=== PATIENT | male | born 1965 | race Caucasian/White ===

== ENCOUNTER 2017-10-31 07:06 | Emergency (ER) | payer MEDICAID, OTHER ==
[~2017-10-31] VITALS: Wt 86.0 kg
[~2017-10-31 07:06] MED LIST: IBUP-1542 PO
[2017-10-31] MEDS ORDERED: ALBUTEROL 0.083% (NEB) 2.5 MG/3 ML AMP NEB STA (07:31)
[2017-10-31] MEDS ORDERED: IPRATROPIUM (NEB) 0.5 MG/2.5 ML AMP NEB STA (07:31)
[2017-10-31] MEDS ORDERED: predniSONE 20 MG TAB PO STA (07:31)
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
[2017-10-31] MEDS ORDERED: PRED20TA PO (08:00)
[2017-10-31] MEDS ORDERED: ALBU8.5H3 INH (08:00)
== END 2017-10-31 08:40 | disposition home or self-care (01) ==
LOC: FTE 07:06
DX: J45.901 Unspecified asthma with (acute) exacerbation (principal); I10 Essential (primary) hypertension
CPT/HCPCS: 94664; J7512; Z7502; Z7610

== ENCOUNTER 2017-10-31 20:38 | Emergency (ER) | payer MEDICAID ==
[~2017-10-31] VITALS: Ht 167.6 cm; Wt 81.8 kg
[~2017-10-31 20:38] MED LIST changes: +ALBU8.5H3 INH; +PRED20TA PO
[2017-10-31 21:00] VITALS: Ht 167.6 cm; Wt 81.8 kg
[2017-10-31] MEDS ORDERED: IBUPROFEN 800 MG TAB PO ONE (21:00)
--- NOTE | 2017-10-31 21:30 | RADRPT ---
PROCEDURE: Chest x-ray CLINICAL INDICATION: Shortness of breath TECHNIQUE: Chest single view COMPARISON: None FINDINGS: The heart is normal in size. The pulmonary vessels are normal in caliber. The lungs are clear. Th e costophrenic angles are sharp. The visualized bony thorax is unremarkable. IMPRESSION: No acute cardiopulmonary disease. No evidence of pneumothorax RPTAT: HH .Carlos Toussaint MD, Date Time Electronically viewed and signed by .Carlos Toussaint MD, MD on 10/31/2017 21:30 .W/
--- NOTE | 2017-10-31 21:33 | RADRPT ---
PROCEDURE: XR Humerus. CLINICAL INDICATION: Left arm pain. S/P fall. TECHNIQUE: AP and lateral views of the left humerus were obtained. COMPARISON: No prior studies are available for comparison. FINDINGS: There is normal mineralization and alignment. No fracture or osseous lesion is identified. There are normal joints without evidence of arthritis or effusion. The soft tissues are unremarkable. IMPRESSION: 1. Unremarkable left humerus x-ray series. RPTAT: PP .Alton Moya MD, MD Date Time Electronically viewed and signed by .Alton Moya MD, on 10/31/2017 21:32 .B/
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
[2017-10-31 22:48] VITALS: BP 138/72; PULSE 71; RESP 20; TEMP 98.1
== END 2017-10-31 22:45 | disposition home or self-care (01) ==
LOC: E/R 20:38
DX: R55 Syncope and collapse (principal); I10 Essential (primary) hypertension; J45.909 Unspecified asthma, uncomplicated
CPT/HCPCS: 71010; 73060; 82962; 93005; Z7502; Z7610

== ENCOUNTER 2017-11-02 13:44 | Emergency (ER) | payer MEDICAID ==
[~2017-11-02] VITALS: Ht 170.2 cm; Wt 85.0 kg
[2017-11-02 13:55] VITALS: Ht 170.2 cm; Wt 85.0 kg
[2017-11-02] MEDS ORDERED: IBUPROFEN 600 MG TAB PO ONE (15:00)
--- NOTE | 2017-11-02 15:34 | RADRPT ---
PROCEDURE: XR right shoulder. CLINICAL INDICATION: right shoulder pain TECHNIQUE: AP, Internal and external rotation views of the shoulder were performed. COMPARISON: None. FINDINGS: There is normal osseous mineralization and alignment. No acute fracture or osseous lesion is identified. There mild degenerative changes at the acromioclavicular joint with small inferior osteophytes. This can predispose to impingement type symptoms. Correlate clinically. The soft tissues are unremarkable. IMPRESSION: 1. No acute abnormalities are identified. 2. There are mild degenerative changes at the acromioclavicular joint with small anterior osteophyt es which can predispose to impingement type symptoms. Correlate clinically. RPTAT:AAJJ Physician Kristy Date Time Electronically viewed and signed by Physician Kristy on 11/02/2017 15:34 AUNDREA/
--- NOTE | 2017-11-02 15:35 | RADRPT ---
PROCEDURE: XR Right Elbow. CLINICAL INDICATION: Right elbow pain, injury TECHNIQUE: AP, lateral and oblique views of the elbow performed. COMPARISON: None. FINDINGS: There is normal mineralization and alignment. No fracture or osseous lesion is identified. There is no significant joint space narrowing. The soft tissues are unremarkable. IMPRESSION: No definite abnormalities are identified. RPTAT:AAJJ Physician Kristy Date Time Electronically viewed and signed by Wilfredo Brock Physician on 11/02/2017 15:35 AUNDREA/
[2017-11-02] MEDS ORDERED: IBUP-1542 PO (16:35)
--- NOTE | 2017-11-02 16:41 | ERD ---
ER Documentation Chief Complaint Chief Complaint right arm pain s/p trip/fall yesterday HPI Is a 52-year-old male presents to the ER with right elbow and right shoulder pain that started 5 days ago after he tripped over a curb and fell, landing on his arm. Pain is throbbing in quality is worse whenever he moves his elbow and shoulder. He denies any numbness or tingling of his upper extremity. He denies any fevers or chills. ROS 12 point review of systems was done, all negative except per HPI. Medications Home Meds Active Scripts Ibuprofen* (Motrin*) 600 Mg Tab, 600 MG PO Q6, #30 TAB Prov:ESTEPHANIA ECKERT 11/02/17 Prednisone* (Prednisone*) 20 Mg Tab, 20 MG PO DAILY for 4 Days, TAB Prov:AISHA BOO MD 10/31/17 Albuterol Sulfate* (Proair HFA*) 8.5 Gm Hfa.aer.ad, 2 PUFF INH Q4H Y for WHEEZING AND SOB, #1 INHALER Prov:AISHA BOO MD 10/31/17 Ibuprofen* (Motrin*) 600 Mg Tab, 600 MG PO Q6H Y for PAIN AND OR ELEVATED TEMP, #15 TAB Prov:MINO COLEMAN MD 10/23/16 Allergies Allergies: Coded Allergies: No Known Allergy (Unverified , 11/02/17) PMhx/Soc History of Surgery: No Anesthesia Reaction: No Hx Neurological Disorder: No Hx Respiratory Disorders: Yes Hx Cardiac Disorders: Yes (HTN) Hx Psychiatric Problems: Yes (Depression) Hx Miscellaneous Medical Probl: No Hx Alcohol Use: Yes Hx Substance Use: No Hx Tobacco Use: No Smoking Status: Never smoker Physical Exam Vitals Vital Signs Date Time Temp Pulse Resp B/P Pulse Ox O2 Delivery O2 Flow Rate FiO2 11/02/17 13:55 98.2 106 18 118/71 97 Physical Exam GENERAL: The patient is well developed and appropriate for usual state of health , in no apparent distress. HEENT: Atraumatic. CHEST: Clear to auscultation bilaterally. There are no rales, wheezes or rhonchi. HEART: Regular rate and rhythm. No murmurs, clicks, rubs or gallops. EXTREMITIES: The right shoulder is without obvious asymmetry or deformity when compared to the left shoulder. No surface trauma, echymosis or crepitus. No bony deformity or prominence over the humeral head. No erythema, warmth, swelling. NT to palpation of the bicipital groove or soft tissues. NT to palpation of the muscles of the sternocleidomastoid, pectorals, biceps/triceps, deltoid, trapezius, rhomboid, latissimus dorsi, rotator cuff. No pain or limitation with active or passive abduction/adduction, internal/external rotation, flexion/extension. Negative "empty can" and "drop arm" test. No axillary tenderness or lymphadenopathy. Normal sensation over the deltoid and ability to flex arm at elbow indicated intact axillary nerve function. Distal motor and neurovascular status intact. Patient does not have any pain to the elbow on palpation or with ROM. EXTREMITIES: The right elbow is without obvious asymmetry or deformity when compared to the left elbow. No obvious surface trauma, ecchymosis, or soft tissue swelling. No bony tenderness to palpation of the lateral or medial epicondyle, olecranon, or radial head. No epicondylar or axillary lymphadenopathy. Normal flexion, extension, supination, pronation. Normal muscle strength. Intact motor and sensation of ulnar, median and radial nerves. Patient has normal ROM of the shoulder and wrist with no tenderness to palpation to either joint. NEURO: Alert and oriented SKIN: The skin is warm and dry. Results 24 hrs Current Medications Medications (Trade) Dose Ordered Sig/Pablo Route PRN Reason Start Time Stop Time Status Last Admin Dose Admin Ibuprofen (Motrin) 600 mg ONCE ONCE PO 11/02/17 15:00 11/02/17 15:01 DC 11/02/17 14:[address] [place] [address] Radiology Main Line: [phone] DIAGNOSTIC IMAGING REPORT Patient: SHAHIDA ESCOBAR : 1965 Age: 52 Sex: M MR #: [id number] DOS: 11/02/17 0000 Ordering MD: ESTEPHANIA ECKERT PA-C Location: [facility] Room/Bed: PROCEDURE: XR Right Elbow. CLINICAL INDICATION: Right elbow pain, injury TECHNIQUE: AP, lateral and oblique views of the elbow performed. COMPARISON: None. FINDINGS: There is normal mineralization and alignment. No fracture or osseous lesion is identified. There is no significant joint space narrowing. The soft tissues are unremarkable. IMPRESSION: No definite abnormalities are identified. RPTAT:AAJJ Wilfredo Brock, Physician Date Time Electronically viewed and signed by Wilfredo Brock Physician on 11/02/2017 15: 35 MC/ CC: ESTEPHANIA ECKERT [place] [id number] Radiology Main Line: [phone] DIAGNOSTIC IMAGING REPORT Patient: SHAHIDA ESCOBAR : 1965 Age: 52 Sex: M MR #: [id number] DOS: 11/02/17 0000 Ordering MD: ESTEPHANIA ECKERT. PA-C Location: [facility] Room/Bed: PROCEDURE: XR right shoulder. CLINICAL INDICATION: right shoulder pain TECHNIQUE: AP, Internal and external rotation views of the shoulder were performed. COMPARISON: None. FINDINGS: There is normal osseous mineralization and alignment. No acute fracture or osseous lesion is identified. There mild degenerative changes at the acromioclavicular joint with small inferior osteophytes. This can predispose to impingement type symptoms. Correlate clinically. The soft tissues are unremarkable. IMPRESSION: 1. No acute abnormalities are identified. 2. There are mild degenerative changes at the acromioclavicular joint with small anterior osteophytes which can predispose to impingement type symptoms. Correlate clinically. RPTAT:AAJJ Wilfredo Brock, Physician Date Time Electronically viewed and signed by Physician Kristy on 11/02/2017 15: 34 MC/ CC: ESTEPHANIA ECKERT Procedures/MDM Differential Diagnosis: AC separation, rotator cuff tear, bursitis, tendonitis, anterior/posterior shoulder dislocation, c-spine injury, peripheral nerve injury , AAA/TAD, elbow strain, supracondylar fracture, compartment syndrome, lateral epicondylitis, disolocation, monteggia fracture, occult radial head fracture. This is a 52-year-old male presents to the ER with elbow and shoulder pain, there is no evidence of fracture or dislocations patient has full and nonpainful motion, he is neurovascularly intact. Will be sent with ibuprofen. Patient is to follow-up with his primary care doctor within 1-2 days return to ER sooner if symptoms. My medical decision making shared with the patient understands and agrees with plan Departure Diagnosis: Primary Impression: Pain of right arm Condition: Stable Patient Instructions: Shoulder Pain (Uncertain Cause) Additional Instructions: Llame al doctor MAANA y phuong lana ELBA PARA DENTRO DE 1-2 ROBBINS.Dgale a la secretaria que nosotros le instruimos hacer esta elba.Avise o llame si anderson condicin se empeora antes de la elba. Regresa aqui si peor o no mejor. ESTEPHANIA ECKERT Nov 02, 2017 16:41
== END 2017-11-02 16:44 | disposition home or self-care (01) ==
LOC: FTE 13:44
DX: M79.601 Pain in right arm (principal); I10 Essential (primary) hypertension
CPT/HCPCS: 73030; 73080; Z7502; Z7610